=== PATIENT | male | born 1980 | race Caucasian/White ===

== ENCOUNTER 2018-07-28 10:14 | Emergency (ER) | payer OTHER ==
[~2018-07-28] VITALS: Ht 167.6 cm; Wt 100.7 kg
[~2018-07-28 10:14] MED LIST: ZITHROMAX TRI-500 MG PO
[2018-07-28] MEDS ORDERED: DOLOGESIC 500-1 EACH PO (15:31)
[2018-07-28] MEDS ORDERED: CYCLOBENZAPRINE10 MG PO (15:31)
== END 2018-07-28 16:19 | disposition home or self-care (01) ==
LOC: ER 10:14
DX: M54.5 Low back pain (principal)

== ENCOUNTER 2018-12-14 11:59 | Emergency (ER) | payer OTHER ==
[~2018-12-14] VITALS: Ht 167.6 cm; Wt 103.4 kg
[~2018-12-14 11:59] MED LIST changes: +CYCLOBENZAPRINE10 MG PO; +DOLOGESIC 500-1 EACH PO
[2018-12-14] MEDS ORDERED: IMURAN50 MG (12:24)
[2018-12-14] MEDS ORDERED: REMICADE (12:25)
== END 2018-12-14 13:32 | disposition home or self-care (01) ==
LOC: ER 11:59
DX: L02.01 Cutaneous abscess of face (principal)

== ENCOUNTER 2021-06-04 16:37 | Inpatient (IN) | payer OTHER ==
[~2021-06-04] VITALS: Ht 167.6 cm; Wt 104.3 kg
[~2021-06-04 16:37] MED LIST changes: +IMURAN50 MG; +REMICADE
[2021-06-04] MEDS ORDERED: TARGADOX50 MG (17:17)
[2021-06-04] MEDS ORDERED: BETAMETHASO (17:17)
[2021-06-11] MEDS ORDERED: MORGIDOX100 MG PO (15:47)
[2021-06-11] MEDS ORDERED: DUI500 PO (15:49)
[2021-06-11] MEDS ORDERED: INTESTINEX680 M1 PO (15:50)
== END 2021-06-11 16:37 | disposition home or self-care (01) | DRG 603 ==
LOC: ER 16:37 → MEDI 06-05 11:30 → SEC-K 06-05 11:30 → MEDI 06-05 15:57
PROVIDERS: ADMIT Internal Medicine; ATTEND Internal Medicine
PROC: 02HV33Z Insertion of Infusion Device into Superior Vena Cava, Percutaneous Approach (ICD-10-PCS; principal; 2021-06-08)
DX: L03.012 Cellulitis of left finger (principal); K51.80 Other ulcerative colitis without complications; E70.331 Hermansky-Pudlak syndrome; Z20.822 Contact with and (suspected) exposure to COVID-19
CPT/HCPCS: 73218